=== PATIENT | male | born 1995 | race Caucasian/White ===

== ENCOUNTER 2019-08-14 12:34 | Emergency (ER) | payer SELFPAY ==
[~2019-08-14] VITALS: Ht 175.3 cm; Wt 82.0 kg
[2019-08-14] MEDS ORDERED: IBUPROFEN 600MG TABLET PO STA (17:32)
[2019-08-14 18:58] VITALS: BP 125/67
== END 2019-08-14 18:50 | disposition home or self-care (01) ==
LOC: ER 12:34
DX: H60.91 Unspecified otitis externa, right ear (principal); H61.21 Impacted cerumen, right ear
CPT/HCPCS: 99283